=== PATIENT | male | born 1940 | race Caucasian/White ===

== ENCOUNTER → 2016-09-18 | Outpatient (CLI) | payer MEDICARE ==
[~2016-09-18] VITALS: Ht 175.3 cm; Wt 104.4 kg
[~2016-09-18] MED LIST: ALBU6.7H INH; COCO1000 PO; FURO20TA PO; INSULIN HUMAN REGULAR 1,000 UNITS/10 ML VIAL SQ PRN; IPRAAER INH; LACTATED RINGER'S 1000 ML IV SCH; METOPROLOL TARTRATE 25 MG TAB PO PRN; PROPOFOL 200 MG/20 ML AMP IV ONE; SIMV10TA PO; SODIUM CHLORID 0.9% 500 ML IV SCH; SYMB160A INH; TAMS0.4C4 PO
[2016-09-18 08:30] VITALS: BP 175/85; PULSE 66; RESP 18; TEMP 98.1; O2SAT 94
[2016-09-18 11:25] VITALS: TEMP 97.7
--- NOTE | 2016-09-18 11:32 | GIPROC ---
[facility] [address] [facility]. [facility], [id number] COLONOSCOPY PROCEDURE REPORT EXAM DATE: 09/18/2016 PATIENT NAME: Praful Roy MR #: [id number] BIRTHDATE: 1940 ENDOSCOPIST: Vladimir Witt MD ORDER #: [id number] PROPERTY AND EQUIPMENT CLERK: Josefina Webb and Estelita Rascon STATUS: outpatient INDICATIONS: The patient is a 76 yr old male here for a colonoscopy due to rectal bleeding PROCEDURE PERFORMED: Colonoscopy with ablation Colonoscopy with polypectomy MEDICATIONS: None and Per Anesthesia. PREP QUALITY: but the prep was poor in the rectum and distal sigmoid ESTIMATED BLOOD LOSS: None CONSENT: The patient understands the risks and benefits of the procedure and understands that these risks include, but are not limited to: sedation, allergic reaction, infection, perforation and/or bleeding. Alternative means of evaluation and treatment include, among others: physical exam, x-rays, and/or surgical intervention. The patient elects to proceed with this endoscopic procedure. medical equipment was checked for proper function. Hand hygiene and appropriate measures for infection prevention was taken. After the risks, benefits and alternatives of the procedure were thoroughly explained, Informed consent was verified, confirmed and timeout was successfully executed by the treatment team. A digital exam revealed no abnormalities of the rectum The Pentax [id number] endoscope was introduced through the anus and advanced to the cecum, which was identified by both the appendix and ileocecal valve. The instrument was then slowly withdrawn as the colon was fully examined. COLON FINDINGS: Ten small medium sized large sessile polyps were found in the ascending colon, transverse colon, descending colon, and sigmoid colon. Adenomatous. A polypectomy was performed using snare cautery. The resection was complete and the polyp tissue was partially retrieved. Ten medium sized large pedunculated polyps were found in the proximal transverse colon, distal transverse colon, and descending colon. Adenomatous. A polypectomy was performed using snare cautery. The resection was complete and the polyp tissue was partially retrieved. Five diminutive sessile polyps were found in the ascending colon, transverse colon, and descending colon. Adenomatous. Destruction of tissue via ablation was attempted. There was no blood loss from maneuver. Mild diverticulosis was noted throughout the entire examined colon. 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 The colon mucosa was otherwise normal. Retroflexed views revealed no abnormalities The scope was then completely withdrawn from the patient and the procedure terminated. PROCEDURE WITHDRAWAL TIME:54.4minutes ADVERSE EVENTS: There were no complications. IMPRESSIONS: 1. Ten small medium sized large sessile polyps were found in the ascending colon, transverse colon, descending colon, and sigmoid colon; Adenomatous; polypectomy was performed using snare cautery 2. Ten medium sized large pedunculated polyps were found in the proximal transverse colon, distal transverse colon, and descending colon; Adenomatous; polypectomy was performed using snare cautery 3. Five diminutive sessile polyps were found in the ascending colon, transverse colon, and descending colon; Adenomatous; Destruction of tissue via ablation was attempted 4. Mild diverticulosis was noted throughout the entire examined colon 5. 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 The colon mucosa was otherwise normal 7. Retroflexed views revealed no abnormalities 8. Revealed no abnormalities of the rectum RECOMMENDATIONS: 1. Await biopsy results. Biopsy results will not be ready for 7-10 days. If you don't hear from us in two weeks, call our office for results. 2. High fiber diet. Avoid nuts, seeds, and popcorn. Chew your food well. 3. Follow-up: GI Clinic 4 week(s) 4. Yearly hemoccult RECALL: Return 3 months Colonoscopy Vladimir Witt MD eSigned: Vladimir Witt MD 09/18/2016 11:31 AM cc: PATIENT NAME: Praful Roy MR#: [id number]
[2016-09-18 11:36] VITALS: BP 164/77; PULSE 78; RESP 20; O2SAT 95
--- NOTE | 2016-09-18 22:09 | EKG ---
Date Performed: 09/18/2016 Time Performed: 08:54:20 PTAGE: 76 years EKG: Sinus rhythm Since previous tracing, no significant change noted NORMAL ECG PREVIOUS TRACING : 08/20/2015 18.37 DOCTOR: Rita Laura Interpretating Date/Time 09/18/2016 22:07:30
== END ==
LOC: HEND 08:01
PROVIDERS: ATTEND Internal Medicine Gastroenterology
DX: D12.4 Benign neoplasm of descending colon (principal); D12.3 Benign neoplasm of transverse colon; D12.2 Benign neoplasm of ascending colon; D12.5 Benign neoplasm of sigmoid colon; K57.30 Diverticulosis of large intestine without perforation or abscess without bleeding; K62.5 Hemorrhage of anus and rectum; K62.7 Radiation proctitis; Z01.810 Encounter for preprocedural cardiovascular examination
CPT/HCPCS: 00810; 45385; 88305; 93005; J7120

== ENCOUNTER 2017-05-13 12:37 | Observation (INO) | payer MEDICARE ==
[2017-05-13] VITALS (8 sets, daily range): BP systolic 143–188; BP diastolic 67–85; PULSE 72–87; RESP 17–20; TEMP 97.4–98.4; O2SAT 92–99
[~2017-05-13] VITALS: Ht 175.3 cm; Wt 102.2 kg
[~2017-05-13 12:37] MED LIST changes: -INSULIN HUMAN REGULAR 1,000 UNITS/10 ML VIAL SQ PRN; -LACTATED RINGER'S 1000 ML IV SCH; -METOPROLOL TARTRATE 25 MG TAB PO PRN; -PROPOFOL 200 MG/20 ML AMP IV ONE; -SODIUM CHLORID 0.9% 500 ML IV SCH
[2017-05-13] MEDS ORDERED: LISI-519 PO (13:00)
[2017-05-13] MEDS ORDERED: oxygen NAS.CANULA (13:00)
--- NOTE | 2017-05-13 13:04 | PD ---
HPI Chief Complaint: Hypertension Time Seen by Provider: 12:55 Travel History International Travel<30 days: No Contact w/Intl Traveler<30days: No Traveled to known affect area: No History of Present Illness HPI patient is a 77-year-old male with a history of COPD presents emergency department for evaluation of a fatigue sensation that started when he had been walking around [facility] today. The patient states he became winded and then pointed to his chest and stated "stare just felt like it wasn't working". 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 He states she's had a heart workup for including an EKG but is never had a stress test or cardiac catheterization. He thought his blood pressure was up and was recently started on lisinopril by his primary care physician. States symptoms are moderate, context as above, worsened by walking , associated with shortness of breath. Of note the patient also states he has a history of aortic bifemoral grafting and is being monitored for an endoleak. PFSH Past Medical History Arthritis: Yes Asthma: No Autoimmune Disease: No Cancer: Yes (prostate cancer with radiation) Cardiovascular Problems: Yes (prev aortic aneurysm) High Cholesterol: Yes COPD: Yes Diabetes: No Diminished Hearing: Yes Endocrine: No Gastrointestinal Disorders: Yes (sometimes will have impaction of stool in rectum) Genitourinary: Yes (enlarged prostate) Hepatitis: No Hiatal Hernia: No Hypertension: Yes Immune Disorder: No Musculoskeletal: Yes (arthritis fingers) Neurologic: No Psychiatric: No Respiratory: Yes (COPD) Sleep Apnea: No Thyroid Disease: No Past Surgical History Abdominal Aneurysm Repair: Yes (october 2014, AORTIC STENT) Abdominal Surgery: Yes (HERNIA REPAIR-RT GROIN X3, APPENDECTOMY, tiny) AICD: No Appendectomy: Yes Body Medical Devices: stent in aorta Cardiac Surgery: Yes (aortic stent) Cholecystectomy: Yes Ear Surgery: No Endocrine Surgery: No Eye Surgery: No Genitourinary Surgery: No Gynecologic Surgery: No Joint Replacement: No Neurologic Surgery: No Oral Surgery: Yes (for dentures) Pacemaker: No Thoracic Surgery: No Other Surgery: Yes Social History Alcohol Use: No Tobacco Use: No (QUIT 7 YRS AGO, SMOKED 3 PPD FOR 60+ YRS) Substance Use: No Allergies-Medications (Allergen,Severity, Reaction): Coded Allergies: No Known Allergies (Verified Allergy, Unknown, 05/13/17) Reported Meds & Prescriptions Reported Meds & Active Scripts Active Reported [oxygen] 2 Liter RHONA.CANULA HS Lisinopril 5 Mg Tab 10 Mg PO DAILY Symbicort Inh (Budesonide/Formoterol Fumarate) 160-4.5 Mcg/Act Aero 2 Puff INH Q12HR Proventil Hfa 6.7 GM Inh (Albuterol Sulfate) 90 Mcg/Act Aer 2 Puff INH Q6H PRN Combivent Respimat Inh (Ipratropium-Albuterol Inh) 20-100 Alf/Act Aero 1 Puff INH TID Tamsulosin (Tamsulosin HCl) 0.4 Mg Cap 0.4 Mg PO HS Simvastatin 10 Mg Tab 5 Mg PO DAILY Review of Systems Except as stated in HPI: all other systems reviewed are Neg Physical Exam Narrative GENERAL: Well-developed well-nourished in no obvious distress. SKIN: Focused skin assessment warm/dry. HEAD: Atraumatic. Normocephalic. EYES: Pupils equal and round. No scleral icterus. No injection or drainage. ENT: No nasal bleeding or discharge. Mucous membranes pink and moist. NECK: Trachea midline. No JVD. CARDIOVASCULAR: Regular rate and rhythm. No murmur appreciated. RESPIRATORY: Slightly increased work of breathing with some accessory muscle use. No retractions. Clear to auscultation. Breath sounds equal bilaterally. GASTROINTESTINAL: Abdomen soft, non-tender, nondistended. Hepatic and splenic margins not palpable. MUSCULOSKELETAL: No obvious deformities. No clubbing. No cyanosis. No edema. NEUROLOGICAL: Awake and alert. No obvious cranial nerve deficits. Motor grossly within normal limits. Normal speech. PSYCHIATRIC: Appropriate mood and affect; insight and judgment normal. Data Data Last Documented VS Vital Signs Date Time Temp Pulse Resp B/P (MAP) Pulse Ox O2 Delivery O2 Flow Rate FiO2 05/13/17 14:54 99 Nasal Cannula 2.00 05/13/17 13:01 82 18 05/13/17 12:47 97.9 188/85 (119) Orders Orders Electrocardiogram (05/13/17 13:02) Basic Metabolic Panel (Bmp) (05/13/17 13:02) Ckmb (Isoenzyme) Profile (05/13/17 13:02) Complete Blood Count With Diff (05/13/17 13:02) Magnesium (Mg) (05/13/17 13:02) Prothrombin Time / Inr (Pt) (05/13/17 13:02) Act Partial Throm Time (Ptt) (05/13/17 13:02) Troponin I (05/13/17 13:02) Chest, Single Ap (05/13/17 13:02) Ecg Monitoring (05/13/17 13:02) Iv Access Insert/Monitor (05/13/17 13:02) Oximetry (05/13/17 13:02) Oxygen Administration (05/13/17 13:02) Aspirin Chew (Aspirin Chew) (05/13/17 13:15) Sodium Chloride 0.9% Flush (Ns Flush) (05/13/17 13:15) Blood Gas Venous (Vbg) (05/13/17 14:28) Methylprednisolone So Succ Inj (Solumedr (05/13/17 14:30) Albuterol-Ipratropium Neb (Duoneb Neb) (05/13/17 15:00) Admit Order (Ed Use Only) (05/13/17 ) Labs Laboratory Tests Test 05/13/17 13:15 05/13/17 14:43 White Blood Count 5.7 TH/MM3 Red Blood Count 4.64 MIL/MM3 Hemoglobin 12.7 GM/DL Hematocrit 38.7 % Mean Corpuscular Volume 83.3 FL Mean Corpuscular Hemoglobin 27.3 PG Mean Corpuscular Hemoglobin Concent 32.8 % Red Cell Distribution Width 14.9 % Platelet Count 190 TH/MM3 Mean Platelet Volume 8.0 FL Neutrophils (%) (Auto) 71.8 % Lymphocytes (%) (Auto) 16.5 % Monocytes (%) (Auto) 7.0 % Eosinophils (%) (Auto) 4.2 % Basophils (%) (Auto) 0.5 % Neutrophils # (Auto) 4.2 TH/MM3 Lymphocytes # (Auto) 0.9 TH/MM3 Monocytes # (Auto) 0.4 TH/MM3 Eosinophils # (Auto) 0.2 TH/MM3 Basophils # (Auto) 0.0 TH/MM3 CBC Comment DIFF FINAL Differential Comment Prothrombin Time 10.5 SEC Prothromb Time International Ratio 1.0 RATIO Activated Partial Thromboplast Time 28.1 SEC Blood Urea Nitrogen 20 MG/DL Creatinine 1.20 MG/DL Random Glucose 102 MG/DL Calcium Level 8.7 MG/DL Magnesium Level 2.2 MG/DL Sodium Level 140 MEQ/L Potassium Level 4.2 MEQ/L Chloride Level 105 MEQ/L Carbon Dioxide Level 31.8 MEQ/L Anion Gap 3 MEQ/L Estimat Glomerular Filtration Rate 58 ML/MIN Total Creatine Kinase 94 U/L Troponin I LESS THAN 0.02 NG/ML Blood Gas Puncture Site VENOUS Blood Gas Patient Temperature 98.6 Venous Blood pH 7.32 Venous Blood Partial Pressure CO2 64 mmHg Venous Blood Partial Pressure O2 20 mmHg Venous Blood HCO3 32 mmol/L Venous Blood Oxygen Saturation 22 % Venous Blood Oxygen Content 3.8 Vol % Venous Blood Base Excess 5.9 mmol/L Oxygen Delivery Device NASAL CANNULA Blood Gas Liter Flow 2 L/M MDM Medical Decision Making Medical Screen Exam Complete: Yes Emergency Medical Condition: Yes Differential Diagnosis ACS, COPD exacerbation, IL, pneumonia. Narrative Course Patient 77-year-old male with exertional chest symptoms today. Denies actual pain but states that "his chest just doesn't feel right". This occurred while he was walking around [facility] today. Patient does have saturations decreasing to 88% on room air on monitoring. He is on oxygen at home during the night only. VBG does show some acute CO2 retention with pH of 7.31 and CO2 of 60. Initial EKG and troponin are negative. His lungs are clear suggesting a cause of COPD but his oxygen saturation is a little low. I wonder if his symptoms are not anginal equivalents. We'll discuss with for the health care physician on-call for observation status. Diagnosis Primary Impression: Chest discomfort Additional Impression: Shortness of breath Admitting Information Admitting Physician Requests: Observation Condition: Stable Leeroy Gan MD May 13, 2017 13:04
[2017-05-13] MEDS ORDERED: SODIUM CHLORIDE 0.9% FLUSH 10 ML FLUSH IVF PRN (13:15)
[2017-05-13] MEDS ORDERED: ASPIRIN 81 MG CHEW TAB PO ONE (13:15)
[2017-05-13 13:34] LABS: CHLORIDE 105 MEQ/L (98-107); POTASSIUM 4.2 MEQ/L (3.5-5.1); SODIUM (NA) 140 MEQ/L (136-145)
[2017-05-13 13:35] LABS: AUTOMATED NEUTROPHIL # 4.2 TH/MM3 (1.8-7.7); BASOPHIL % 0.5 % (0.0-2.0); EOSINOPHIL # 0.2 TH/MM3 (0-0.4); EOSINOPHIL % 4.2 % (0.0-4.0); HEMATOCRIT 38.7 % (39.0-51.0); HEMO FLAGS DIFF FINAL; LYMPH % 16.5 % (9.0-44.0); LYMPHOCYTE # 0.9 TH/MM3 (1.0-4.8); MEAN CELL VOLUME 83.3 FL (80.0-100.0); MEAN CORPUSCULAR HEMOGLOBIN 27.3 PG (27.0-34.0); MEAN CORPUSCULAR HGB CONC 32.8 % (32.0-36.0); NEUT % 71.8 % (16.0-70.0); PLATELET COUNT 190 TH/MM3 (150-450); RED BLOOD COUNT 4.64 MIL/MM3 (4.50-5.90); RED CELL DISTRIBUTION WIDTH 14.9 % (11.6-17.2); WHITE BLOOD COUNT 5.7 TH/MM3 (4.0-11.0)
[2017-05-13 13:37] LABS: ANION GAP 3 MEQ/L (5-15); BICARBONATE 31.8 MEQ/L (21.0-32.0); BLOOD UREA NITROGEN 20 MG/DL (7-18); MAGNESIUM 2.2 MG/DL (1.5-2.5)
[2017-05-13 13:38] LABS: APTT (PATIENT) 28.1 SEC (24.3-30.1); PROTHROMBIN TIME - PATIENT 10.5 SEC (9.8-11.6)
[2017-05-13 13:40] LABS: GLOMERULAR FILTRATION RATE 58 ML/MIN (>89)
--- NOTE | 2017-05-13 13:50 | RADRPT ---
EXAM DATE/TIME: 05/13/2017 13:07 [facility] COMPARISON: CHEST SINGLE AP, August 20, 2015, 19:09. INDICATIONS : Shortness of breath, weakness, while shopping. MEDICAL HISTORY : Hypercholesterolemia. Chronic obstructive pulmonary disease. Carcinoma, prostatic. Aortic aneurys m. Hypertension.Dyspnea. Constipation. Arthritis. Radiation. SURGICAL HISTORY : Abdominal aortic aneurysm repair. Colostomy. Appendectomy. Hernia repair. ENCOUNTER: Initial ACUITY: 1 day PAIN SCORE: 5/10 LOCATION: chest FINDINGS: A single view of the chest demonstrates the lungs to be symmetrically aerated without evidence of mas s, infiltrate or effusion. The cardiomediastinal contours are unremarkable. Osseous structures are intact. CONCLUSION: No acute disease. King Mathew Jr., MD on May 13, 2017 at 13:48 Board Certified Radiologist. This report was verified electronically.
[2017-05-13 13:56] LABS: CREATINE KINASE 94 U/L (39-308)
[2017-05-13] MEDS ORDERED: methylPREDNISolone SOD SUCC 125 MG/2 ML VIAL IV PUSH ONE (14:30)
[2017-05-13 14:47] LABS: BLOOD GAS VENOUS BASE EXCESS 5.9 mmol/L (-2-2); BLOOD GAS VENOUS HCO3 32 mmol/L (22-26); BLOOD GAS VENOUS O2 CONTENT 3.8 Vol % (9.0-17.0); BLOOD GAS VENOUS O2 HGB SAT 22 % (70-76); BLOOD GAS VENOUS PCO2 64 mmHg (44-48); BLOOD GAS VENOUS PO2 20 mmHg (35-40); BLOOD GAS VENOUS pH 7.32 (7.360-7.400); TEMP CORR TO 98.6
[2017-05-13 14:48] LABS: CRITICAL VALUE YES; DRAW SITE VENOUS; LITER FLOW 2 L/M; OXYGEN DEVICE NASAL CANNULA; STAT YES
[2017-05-13] MEDS ORDERED: RESP: ALBUTEROL 2.5 MG/IPRATROPIUM 0.5 MG NEB (SCH) NEB ONE (15:00)
[2017-05-13] MEDS ORDERED: SODIUM CHLORIDE 0.9% FLUSH 10 ML FLUSH IV FLUSH PRN (15:45)
--- NOTE | 2017-05-13 17:06 | MH ---
cc: EVELIO LAWSON M.D. DATE OF ADMISSION 05/13/2017 ADMISSION DIAGNOSES 1. Intermittent chest discomfort. 2. COPD with chronic respiratory failure on oxygen at night. 3. Hypertension. 4. Hyperlipidemia. 5. Mild carotid artery atherosclerosis. 6. History of prostate cancer with prior image-guided radiation therapy. 7. Stage III chronic kidney disease. 8. Abdominal aortic aneurysm with prior endovascular repair with a persistent type 2 endoleak that is just monitored by his vascular surgeon Dr. Simons. 9. Atherosclerosis of the aorta. 10. History of colon polyps. 11. Diverticulosis. 12. Fatty liver. 13. Obesity. PERTINENT HISTORY This is a 77-year-old white male who mentions that over the last 1-2 months he is finding that he is getting weaker. He gets winded really easily and then he describes very unclearly this feeling that he gets in his chest and upper abdomen where he says it just feels uncomfortable or he does not really describe it as a pain, maybe a pressure. He gets winded with it. It happens worse when he is walking. He has not seen a architecture intern or had any cardiac disease. He does see a data storage specialist for his severe COPD and uses oxygen at night. He can use oxygen during the day as needed but he does not use it for some reason. He denies any pleuritic chest pain. No nausea, vomiting or cough. PAST MEDICAL HISTORY 1. He has hypertension. 2. Hyperlipidemia. 3. COPD as mentioned. 4. Stage III chronic kidney disease. His last GFR in the office was 56. 5. He has had prostate cancer with image guided radiation therapy. His last PSA in March 21 was less than 0.01. 6. He has carotid artery disease with mild bilateral nonobstructive plaque on a carotid ultrasound 10/10/16. 7. He has had multiple colon polyps removed on two separate colonoscopies this year one on 09/18/2016 and another on 01/24/2017 and all the polyps that were looked at pathologically were adenomatous polyp, one was a tubovillous adenoma. 8. He has had fatty liver disease. 9. 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 10. He had an abdominal aortic aneurysm repaired endovascularly and has had a persistent type 2 endovascular leak monitoring, that has just been monitored by Dr. Simons. 11. He has had no thyroid disease. No diabetes. No prior heart attack, congestive heart failure. No stroke. No cancer other than the prostate cancer. PAST SURGICAL HISTORY 1. He has had laparoscopic cholecystectomy. 2. Appendectomy. 3. Endovascular repair of his abdominal aortic aneurysm. 4. Right inguinal hernia repair times three. 5. Pilonidal cyst resection. 6. Colonoscopy 09/18/2016 with at least around 25 polyps found and diverticulosis. 7. Colonoscopy 01/24/2017 had around 7 polyps and diverticulosis. ALLERGIES QUESTIONABLE TO [facility]. MEDICATIONS He is on: 1. Lisinopril 10 milligrams daily. 2. Simvastatin, he takes 10 milligram tablet one-half day. 3. Symbicort 160/4.5 per actuation two puffs twice a day. 4. Tamsulosin 0.4 milligram, he just uses one at night. 5. Ventolin inhalers as needed. 6. He has Lasix 20 milligrams a day only if needed for edema and he has not used this in a month. 7. He uses a Combivent Respimat inhaler one to two puffs four times daily as needed. FAMILY HISTORY His mother at 86 of gangrene of the leg. Father at 51 of a heart attack. SOCIAL HISTORY He is twice. He smoked 2-1/2 packs a day for around 53 years prior to quitting in 2004. He does not use alcohol. He is a retired warehouse assistant. REVIEW OF SYSTEMS GENERAL: No fever or chills, sweats. HEENT: No runny nose, sore throat. No visual complaints. CARDIOVASCULAR: As mentioned. PULMONARY: No cough, hemoptysis, wheezing. He does have COPD. GASTROINTESTINAL: No nausea, vomiting. no melena or rectal bleeding. He had some constipation problems. GENITOURINARY: No increased urinary difficulty. He sees Dr. Carrasquillo for prostate cancer followup. EXTREMITIES: He just has minimal swelling. He uses Lasix if he has swelling. No calf tenderness. NEUROLOGIC: Without focal weakness, sensory loss or confusion. PSYCHIATRIC: Without any depression or anxiety. PHYSICAL EXAMINATION GENERAL: Obese male in no acute distress. VITAL SIGNS: O2 sat on 2 liters is around 97%. He reportedly, according the ER physician, had a sat of 88% of room air when he came in. His BP is 154/67 now, respirations 20, pulse 72. He is afebrile . HEENT: TMs clear. Pupils equal. Sclerae nonicteric. Nose without lesion. Mouth without inflammation or lesion. NECK: Without bruit. No JVD. HEART: Regular rate and rhythm. No murmur. LUNGS: No wheezes or rhonchi. ABDOMEN: Soft, nontender, obese, no masses. EXTREMITIES: Just trace ankle edema. Pulses are palpated. SKIN: No rash. NEUROLOGIC: Oriented x3. Cranial nerves intact. Motor sensory intact. IMAGING A Chest x-ray showed no acute process. LABORATORY DATA BMP, GFR was 58. Sodium and potassium normal. Troponin less than 0.02. CBC, hemoglobin 12.7, normal red cell indices. Platelets normal. ABG on 2 liters showed a pCO2 of 64, pH is 7.32, pAO2 ___, this was actually not an arterial blood gas, it was a venous blood gas but the pCO2 was 64. EKG showed no acute process. Chest x-ray showed no acute disease. ASSESSMENT As noted. PLAN We will admit him and do serial troponins and EKGs. Obtain a cardiology consult to rule out any anginal equivalent. He does seem to get some sort of worse symptoms when he is exerting himself and that is when his primary symptoms occur. He is asymptomatic currently. We will put him on a baby aspirin for now. He will be maintained on a statin drug and his inhalers and his KAYDEN inhibitor. He will be maintained on oxygen currently. We will attempt to do a respiratory walk test on him on room air just to see if his sats drop down real low when he is ambulating. More than likely he needs to be using oxygen when he is out ambulating, and it may be that some of his symptoms are reflective more of his COPD deteriorating. MD CYNTHIA Lemus/DREW /4:10 PM /4:29 PM
[2017-05-13] MEDS ORDERED: COMBIVENT RESPIMAT INH SCH (18:00)
[2017-05-13 19:05] LABS: CREATINE KINASE 75 U/L (39-308)
[2017-05-13] MEDS: SODIUM CHLORIDE 0.9% FLUSH 10 ML FLUSH IV FLUSH SCH (21:59)
[2017-05-13] MEDS: BUDESONIDE-FORMOTEROL 160/4.5 MCG INHALER INH SCH (21:59)
[2017-05-13] MEDS: PANTOPRAZOLE SOD 40 MG DELAYED RELEASE TAB PO SCH (21:59)
[2017-05-13] MEDS: TAMSULOSIN HCL 0.4 MG CAP PO SCH (22:00)
[2017-05-14] VITALS (10 sets, daily range): BP systolic 136–171; BP diastolic 64–89; PULSE 70–102; RESP 16–20; TEMP 96.4–98.1; O2SAT 93–98
[2017-05-14 04:25] LABS: CREATINE KINASE 64 U/L (39-308)
--- NOTE | 2017-05-14 07:58 | MB ---
cc: CHICHI CANTU MD DATE OF CONSULTATION: 05/14/2017 HISTORY OF PRESENT ILLNESS This is a 77-year-old gentleman who is admitted to the hospital for not feeling well. He is somewhat of a poor historian. He noted gradually over the last several months after eating he has a vague feeling of uneasiness and feeling unwell. This was exacerbated yesterday, especially after walking [employer] and he came to the emergency department. No real chest pain has been present, although he does describe a vague feeling of discomfort. He did note that he was significantly short of breath. No cough or sputum production was present. No prior history of heart disease has been present. He has a history of COPD for which he wears oxygen at night. He has been recommended to have home O2 but finds that carrying supplemental oxygen inconvenient and has not been able to afford a concentrator. On admission to the hospital it was noted that his pH was low at 7.32 with hypercarbia with PCO2 of 64 and PO2 of 20. Chest x-ray was unremarkable and his electrocardiogram is normal. Serial troponins have also been essentially normal as well. I have been asked to see him to rule out any occult heart disease which may be an anginal equivalent. PAST MEDICAL HISTORY He is a former smoker having stopped in 2004. He has had a history of hypertension and has recently been started on lisinopril. He is uncertain of the efficacy of the lisinopril. We do note that his blood pressure has been elevated since he has been here in the hospital. No history of diabetes has been present. He denies hyperlipidemia. Past medical history has otherwise been unremarkable. ALLERGIES None. MEDICATIONS Medications at home have included: 1. Symbicort. 2. Aspirin. 3. Atorvastatin. 4. Protonix. 5. Flomax. 6. Albuterol. PHYSICAL EXAMINATION GENERAL: He is awake and alert. He is in no acute distress. VITAL SIGNS: Blood pressure 150/65, pulse 74 and regular. He is afebrile. NECK: There is no neck vein distention. No carotid bruits are present. LUNGS: Decreased breath sounds throughout all lung bob. No wheezes or rhonchi is present. CARDIOVASCULAR: Regular rate and rhythm. No significant murmur is present. There is no gallop. EXTREMITIES: No edema. ASSESSMENT AND PLAN The patient has what appears to be an exacerbation of his COPD given his blood gases. I have ordered a D-dimer as well to rule out the possibility of pulmonary emboli, although I think that is unlikely. A BNP has also been ordered to help try to parse differences between COPD and CHF. He has had a normal echo in 2012 and certainly on his chest x-ray there is no evidence to suggest fluid retention. In view of his history of hypertension and smoking I have ordered a Lexiscan to rule out occult coronary disease. MD JOJO Burden/SERGIO /7:39 AM /7:51 AM
[2017-05-14] MEDS ORDERED: LISINOPRIL 10 MG TAB PO SCH (09:00)
[2017-05-14] MEDS: amLODIPine BESYLATE 5 MG TAB PO SCH (09:05)
[2017-05-14] MEDS: ASPIRIN EC 81 MG TABEC PO SCH (09:05)
[2017-05-14] MEDS: BUDESONIDE-FORMOTEROL 160/4.5 MCG INHALER INH SCH ×2 (09:05→21:02)
[2017-05-14] MEDS: ATORVASTATIN 10 MG TAB PO SCH (09:05)
[2017-05-14] MEDS: PANTOPRAZOLE SOD 40 MG DELAYED RELEASE TAB PO SCH (09:06)
[2017-05-14] MEDS: SODIUM CHLORIDE 0.9% FLUSH 10 ML FLUSH IV FLUSH SCH ×2 (09:07→21:03)
[2017-05-14] MEDS ORDERED: IOHEXOL 350 MG/ML 10 ML VIAL (for RAD DIAG) IVCONTRAST ONE (11:50)
--- NOTE | 2017-05-14 11:59 | RADRPT ---
EXAM DATE/TIME: 05/14/2017 11:41 [facility] COMPARISON: No previous studies available for comparison. INDICATIONS : Chest pain and short of breath x 3 weeks, worse since yesterday. IV CONTRAST: 75 cc Omnipaque 350 (iohexol) IV RADIATION DOSE: 17.01 CTDIvol (mGy) MEDICAL HISTORY : Carcinoma, prostate. Chronic obstructive pulmonary disease. Aneurysm, abdominal.Hypertension. SURGICAL HISTORY : Inguinal hernia repair. Abdominal aortic aneurysm repair.Appendectomy.Cholecystectomy. ENCOUNTER: Initial ACUITY: 3 weeks PAIN SCALE: 5/10 LOCATION: chest TECHNIQUE: Volumetric scanning of the chest was performed using a pulmonary embolism protocol MIP images were re constructed. Using automated exposure control and adjustment of the mA and/or kV according to patien t size, radiation dose was kept as low as reasonably achievable to obtain optimal diagnostic quality images. DICOM format image data is available electronically for review and comparison. Follow-up recommendations for detected pulmonary nodules are based at a minimum on nodule size and pa tient risk factors according to Fleischner Society Guidelines. FINDINGS: PULMONARY ARTERIES: No filling defects are seen in the pulmonary arteries through the segmental level. LUNGS: There is no consolidation or pneumothorax . No concerning pulmonary nodule is visualized. PLEURAE: There is no pleural thickening or pleural effusion. MEDIASTINUM: There is good visualization of the great vessels of the middle mediastinum. No evidence of mediastin al or hilar adenopathy/mass. Marked atherosclerotic disease MUSCULOSKELETAL: Within normal limits for patient age. MISCELLANEOUS: The visualized upper abdominal organs demonstrate no acute abnormality. CONCLUSION: Normal examination. Matthew Marmolejo MD on May 14, 2017 at 11:57 Board Certified Radiologist. This report was verified electronically.
--- NOTE | 2017-05-14 15:36 | HHI.PR ---
Subjective Remarks He stated he felt better today. I had given him some Pantoprazole for some vague epigastric GI symptoms and that seemed to help. He denies any increased breathing problems. Objective Vitals Vital Signs Date Time Temp Pulse Resp B/P (MAP) Pulse Ox O2 Delivery O2 Flow Rate FiO2 05/14/17 12:00 96.5 102 18 171/77 (108) 94 05/14/17 09:21 94 05/14/17 08:00 96.5 82 16 168/89 (115) 96 05/14/17 07:56 95 Nasal Cannula 2.00 05/14/17 04:00 96.4 74 20 153/65 (94) 94 05/14/17 00:00 98.1 77 20 150/71 (97) 93 05/13/17 21:10 84 05/13/17 20:00 97.4 84 20 186/84 (118) 95 05/13/17 19:30 95 Nasal Cannula 2.00 05/13/17 16:00 98.4 74 20 143/67 (92) 92 05/13/17 15:55 Result Diagram: 05/13/17 1315 05/13/17 1315 Other Results Laboratory Tests Test 05/13/17 13:15 05/13/17 14:43 05/13/17 18:30 05/14/17 03:24 White Blood Count 5.7 TH/MM3 Red Blood Count 4.64 MIL/MM3 Hemoglobin 12.7 GM/DL Hematocrit 38.7 % Mean Corpuscular Volume 83.3 FL Mean Corpuscular Hemoglobin 27.3 PG Mean Corpuscular Hemoglobin Concent 32.8 % Red Cell Distribution Width 14.9 % Platelet Count 190 TH/MM3 Mean Platelet Volume 8.0 FL Neutrophils (%) (Auto) 71.8 % Lymphocytes (%) (Auto) 16.5 % Monocytes (%) (Auto) 7.0 % Eosinophils (%) (Auto) 4.2 % Basophils (%) (Auto) 0.5 % Neutrophils # (Auto) 4.2 TH/MM3 Lymphocytes # (Auto) 0.9 TH/MM3 Monocytes # (Auto) 0.4 TH/MM3 Eosinophils # (Auto) 0.2 TH/MM3 Basophils # (Auto) 0.0 TH/MM3 CBC Comment DIFF FINAL Differential Comment Prothrombin Time 10.5 SEC Prothromb Time International Ratio 1.0 RATIO Activated Partial Thromboplast Time 28.1 SEC Blood Urea Nitrogen 20 MG/DL Creatinine 1.20 MG/DL Random Glucose 102 MG/DL Calcium Level 8.7 MG/DL Magnesium Level 2.2 MG/DL Sodium Level 140 MEQ/L Potassium Level 4.2 MEQ/L Chloride Level 105 MEQ/L Carbon Dioxide Level 31.8 MEQ/L Anion Gap 3 MEQ/L Estimat Glomerular Filtration Rate 58 ML/MIN Total Creatine Kinase 94 U/L 75 U/L 64 U/L Troponin I LESS THAN 0.02 NG/ML LESS THAN 0.02 NG/ML LESS THAN 0.02 NG/ML Blood Gas Puncture Site VENOUS Blood Gas Patient Temperature 98.6 Venous Blood pH 7.32 Venous Blood Partial Pressure CO2 64 mmHg Venous Blood Partial Pressure O2 20 mmHg Venous Blood HCO3 32 mmol/L Venous Blood Oxygen Saturation 22 % Venous Blood Oxygen Content 3.8 Vol % Venous Blood Base Excess 5.9 mmol/L Oxygen Delivery Device NASAL CANNULA Blood Gas Liter Flow 2 L/M Test 05/14/17 09:00 D-Dimer Quantitative (PE/DVT) 4.37 MG/L FEU B-Type Natriuretic Peptide 36 PG/ML Imaging Last Impressions CT Angiography 05/14/17 0000 Signed Impressions: Service Date/Time: Sunday, May 14, 2017 11:41 - CONCLUSION: Normal examination. Matthew Marmolejo MD Chest X-Ray 05/13/17 1302 Signed Impressions: Service Date/Time: Saturday, May 13, 2017 13:07 - CONCLUSION: No acute disease. King Mathew Jr., MD Objective Remarks General: Pleasant male in no distress HEENT: Pupils equal, no scleral icterus, mouth negative Neck: No JVD Heart: RRR Lungs: Clear Abdomen: soft, obese, no significant tenderness Extremities: No edema Neuro: Alert, no focal findings A/P Assessment and Plan Assessment: -- Intermittent chest discomfort -- COPD -- Chronic respiratory failure who uses oxygen at night but has been hesitant to use it in the day but likely needs it. 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 If this comes back negative he should be able to be discharge. He will be instructed to use his oxygen during the day while ambulating. He will followup with his occupational health and safety officer (Dr Hussein) and PCP when discharged. I will give him some Pantoprazole 40mg to use daily for GI symptoms. If they cannot do his stress today then it will be done tomorrow. Nathaniel Castro MD May 14, 2017 15:36
--- NOTE | 2017-05-14 19:13 | EKG ---
Date Performed: 05/13/2017 Time Performed: 13:10:06 PTAGE: 77 years EKG: Sinus rhythm Since previous tracing, no significant change noted NORMAL ECG PREVIOUS TRACING : 09/18/2016 08.54 DOCTOR: Ronnell Barr Interpretating Date/Time 05/14/2017 19:11:59
--- NOTE | 2017-05-14 19:14 | EKG ---
Date Performed: 05/13/2017 Time Performed: 18:03:01 PTAGE: 77 years EKG: Sinus rhythm Since previous tracing, no significant change noted NORMAL ECG PREVIOUS TRACING : 05/13/2017 13.10 DOCTOR: Ronnell Barr Interpretating Date/Time 05/14/2017 19:12:21
--- NOTE | 2017-05-14 19:14 | EKG ---
Date Performed: 05/14/2017 Time Performed: 02:57:12 PTAGE: 77 years EKG: Sinus rhythm Since previous tracing, no significant change noted NORMAL ECG PREVIOUS TRACING : 05/13/2017 18.03 DOCTOR: Ronnell Barr Interpretating Date/Time 05/14/2017 19:12:37
[2017-05-14] MEDS: ALBUTEROL SULFATE 90 MCG/ACT HFA 8 GM INHALER INH PRN (21:01)
[2017-05-14] MEDS: LISINOPRIL 10 MG TAB PO SCH (21:02)
[2017-05-14] MEDS: TAMSULOSIN HCL 0.4 MG CAP PO SCH (21:02)
[2017-05-15] MEDS: ALBUTEROL SULFATE 90 MCG/ACT HFA 8 GM INHALER INH PRN (00:42)
[2017-05-15 04:00] VITALS: BP 134/60; PULSE 76; RESP 20; TEMP 97.8; O2SAT 96
[2017-05-15 08:00] VITALS: BP 140/60; PULSE 77; RESP 14; TEMP 97.3; O2SAT 99
--- NOTE | 2017-05-15 08:00 | PD.CARD.PN ---
Subjective Subjective Remarks CTA normal. No evidence of pulmonary emboli. Await lexiscan Objective Medications Current Medications Medications (Trade) Dose Ordered Sig/Clifford Route Start Time Stop Time Status Last Admin (NS Flush) 2 ml BID IV FLUSH 05/13/17 21:00 05/14/17 21:03 (NS Flush) 2 ml UNSCH PRN IV FLUSH 05/13/17 15:45 (Proair Hfa Inh) 2 puff Q6H PRN INH 05/13/17 16:00 05/15/17 00:42 (Symbicort 160-4.5 Inh) 2 puff Q12HR INH 05/13/17 21:00 05/14/17 21:02 (Flomax) 0.4 mg HS PO 05/13/17 21:00 05/14/17 21:02 Patient Own Medication PT OWN MED:COMBIVENT RESPIMA... TID INH 05/13/17 18:00 Future Hold (Lipitor) 10 mg DAILY PO 05/14/17 09:00 05/14/17 09:05 (Ecotrin Ec) 81 mg DAILY PO 05/14/17 09:00 05/14/17 09:05 (Protonix) 40 mg DAILY PO 05/13/17 21:30 05/14/17 09:06 (Norvasc) 5 mg DAILY PO 05/14/17 09:00 05/14/17 09:05 (Prinivil) 10 mg BID PO 05/14/17 21:00 05/14/17 21:02 Vital Signs / I&O Vital Signs Date Time Temp Pulse Resp B/P (MAP) Pulse Ox O2 Delivery O2 Flow Rate FiO2 05/15/17 04:00 97.8 76 20 134/60 (84) 96 05/14/17 20:00 76 05/14/17 20:00 96.8 70 20 146/68 (94) 98 05/14/17 19:30 97 Nasal Cannula 2.00 05/14/17 17:41 75 05/14/17 16:39 97.2 74 20 136/64 (88) 96 05/14/17 12:00 96.5 102 18 171/77 (108) 94 05/14/17 09:21 94 I/O 05/14/17 05/14/17 05/14/17 05/15/17 05/15/17 11/22/17 07:00 15:00 23:00 07:00 15:00 23:00 Intake Total 120 ml 840 ml 0 ml Balance 120 ml 840 ml 0 ml Intake Oral 120 ml 840 ml 0 ml # Voids 3 8 2 # Bowel Movements 0 1 Laboratory Laboratory Tests Test 05/14/17 09:00 D-Dimer Quantitative (PE/DVT) 4.37 MG/L FEU B-Type Natriuretic Peptide 36 PG/ML Adalberto Sampson MD May 15, 2017 08:00
[2017-05-15 08:52] VITALS: O2SAT 98
[2017-05-15] MEDS: SODIUM CHLORIDE 0.9% FLUSH 10 ML FLUSH IV FLUSH SCH (09:00)
[2017-05-15] MEDS ORDERED: REGADENOSON INJ 0.4 MG/5 ML SYR IV ONE (09:14)
[2017-05-15] MEDS: PANTOPRAZOLE SOD 40 MG DELAYED RELEASE TAB PO SCH (10:02)
[2017-05-15] MEDS: amLODIPine BESYLATE 5 MG TAB PO SCH (10:03)
[2017-05-15] MEDS: LISINOPRIL 10 MG TAB PO SCH (10:03)
[2017-05-15] MEDS: ATORVASTATIN 10 MG TAB PO SCH (10:03)
[2017-05-15] MEDS: ASPIRIN EC 81 MG TABEC PO SCH (10:03)
[2017-05-15] MEDS: BUDESONIDE-FORMOTEROL 160/4.5 MCG INHALER INH SCH (10:05)
--- NOTE | 2017-05-15 10:18 | RADRPT ---
EXAM DATE/TIME: 05/15/2017 09:02 [facility] COMPARISON: No previous studies available for comparison. INDICATIONS : Mid chest pain for two weeks. Angina. DOSE: 29.8 mCi Tc99m Myoview at stress. 8.7 mCi Tc99m Myoview at rest. 0.4 mg Lexiscan STRESS SYMPTOMS: Shortness of breath. EJECTION FRACTION: 55% MEDICAL HISTORY : Chronic obstructive pulmonary disease. Hypertension. Carcinoma, prostate. SURGICAL HISTORY : Abdominal aortic aneurysm repair. Cholecystectomy. Appendectomy. ENCOUNTER: Initial ACUITY: 2 weeks PAIN SCALE: 5/10 LOCATION: Midsternal chest TECHNIQUE: The patient underwent pharmacologic stress with infusion of prescribed dose. Continuous ECG tracing was monitored during stress. Gated SPECT imaging was performed after stress and conventional SPECT i maging was performed at rest. The examination was performed on a SPECT/CT scanner, both attenuation and non-corrected datasets were reviewed. FINDINGS: DISTRIBUTION: The maximum perfused segment at stress is in the septal wall. PERFUSION STUDY: The pattern of perfusion at stress is within normal limits. GATED STUDY: There is intact wall motion and thickening without hypokinetic or dyskinetic segments. CONCLUSION: 1. No significant stress-induced perfusion abnormality. 2. Intact wall motion with ejection fraction of 55%. RISK CATEGORY: Low (<1% Annual Mortality Rate) Alex Ely MD on May 15, 2017 at 10:15 Board Certified Radiologist. This report was verified electronically.
[2017-05-15] MEDS ORDERED: LISI10TA3 PO (11:15)
[2017-05-15] MEDS ORDERED: AMLO5 PO (11:15)
[2017-05-15] MEDS ORDERED: PANT40TA3 PO (11:15)
[2017-05-15] MEDS ORDERED: ECASA81 PO (11:15)
--- NOTE | 2017-05-15 11:49 | HHI.PR ---
Subjective Remarks His breathing is stable on oxygen. He has no chest pain. He was not able to do his nuclear stress test till this morning and it showed no ischemia. He is wanting to go home. Objective Vitals Vital Signs Date Time Temp Pulse Resp B/P (MAP) Pulse Ox O2 Delivery O2 Flow Rate FiO2 05/15/17 08:52 98 Nasal Cannula 2.00 05/15/17 08:00 97.3 77 14 140/60 (86) 99 05/15/17 04:00 97.8 76 20 134/60 (84) 96 05/14/17 20:00 76 05/14/17 20:00 96.8 70 20 146/68 (94) 98 05/14/17 19:30 97 Nasal Cannula 2.00 05/14/17 17:41 75 05/14/17 16:39 97.2 74 20 136/64 (88) 96 05/14/17 12:00 96.5 102 18 171/77 (108) 94 Result Diagram: 05/13/17 1315 05/13/17 1315 Other Results Laboratory Tests Test 05/13/17 13:15 05/13/17 14:43 05/13/17 18:30 05/14/17 03:24 White Blood Count 5.7 TH/MM3 Red Blood Count 4.64 MIL/MM3 Hemoglobin 12.7 GM/DL Hematocrit 38.7 % Mean Corpuscular Volume 83.3 FL Mean Corpuscular Hemoglobin 27.3 PG Mean Corpuscular Hemoglobin Concent 32.8 % Red Cell Distribution Width 14.9 % Platelet Count 190 TH/MM3 Mean Platelet Volume 8.0 FL Neutrophils (%) (Auto) 71.8 % Lymphocytes (%) (Auto) 16.5 % Monocytes (%) (Auto) 7.0 % Eosinophils (%) (Auto) 4.2 % Basophils (%) (Auto) 0.5 % Neutrophils # (Auto) 4.2 TH/MM3 Lymphocytes # (Auto) 0.9 TH/MM3 Monocytes # (Auto) 0.4 TH/MM3 Eosinophils # (Auto) 0.2 TH/MM3 Basophils # (Auto) 0.0 TH/MM3 CBC Comment DIFF FINAL Differential Comment Prothrombin Time 10.5 SEC Prothromb Time International Ratio 1.0 RATIO Activated Partial Thromboplast Time 28.1 SEC Blood Urea Nitrogen 20 MG/DL Creatinine 1.20 MG/DL Random Glucose 102 MG/DL Calcium Level 8.7 MG/DL Magnesium Level 2.2 MG/DL Sodium Level 140 MEQ/L Potassium Level 4.2 MEQ/L Chloride Level 105 MEQ/L Carbon Dioxide Level 31.8 MEQ/L Anion Gap 3 MEQ/L Estimat Glomerular Filtration Rate 58 ML/MIN Total Creatine Kinase 94 U/L 75 U/L 64 U/L Troponin I LESS THAN 0.02 NG/ML LESS THAN 0.02 NG/ML LESS THAN 0.02 NG/ML Blood Gas Puncture Site VENOUS Blood Gas Patient Temperature 98.6 Venous Blood pH 7.32 Venous Blood Partial Pressure CO2 64 mmHg Venous Blood Partial Pressure O2 20 mmHg Venous Blood HCO3 32 mmol/L Venous Blood Oxygen Saturation 22 % Venous Blood Oxygen Content 3.8 Vol % Venous Blood Base Excess 5.9 mmol/L Oxygen Delivery Device NASAL CANNULA Blood Gas Liter Flow 2 L/M Test 05/14/17 09:00 D-Dimer Quantitative (PE/DVT) 4.37 MG/L FEU B-Type Natriuretic Peptide 36 PG/ML Imaging Last Impressions Myocardial Perfusion Scan Nuc Med 05/15/17 0000 Signed Impressions: Service Date/Time: Monday, May 15, 2017 09:02 - CONCLUSION: 1. No significant stress-induced perfusion abnormality. 2. Intact wall motion with ejection fraction of 55%%. RISK CATEGORY: Low (<1%% Annual Mortality Rate ) Alex Ely MD CT Angiography 05/14/17 0000 Signed Impressions: Service Date/Time: Sunday, May 14, 2017 11:41 - CONCLUSION: Normal examination. Matthew Marmolejo MD Chest X-Ray 05/13/17 1302 Signed Impressions: Service Date/Time: Saturday, May 13, 2017 13:07 - CONCLUSION: No acute disease. King Mathew Jr., MD Last Impressions CT Angiography 05/14/17 0000 Signed Impressions: Service Date/Time: Sunday, May 14, 2017 11:41 - CONCLUSION: Normal examination. Matthew Marmolejo MD Chest X-Ray 05/13/17 1302 Signed Impressions: Service Date/Time: Saturday, May 13, 2017 13:07 - CONCLUSION: No acute disease. King Mathew Jr., MD Objective Remarks General: Pleasant male in no distress HEENT: Pupils equal, no scleral icterus, mouth negative Neck: No JVD Heart: RRR Lungs: Clear Abdomen: soft, obese, no significant tenderness Extremities: No edema Neuro: Alert, no focal findings A/P Assessment and Plan Assessment: -- Intermittent vague chest discomfort that was determined to be noncardiac and likely secondary to COPD -- COPD with hypoxic events when ambulating as the likely cause of his presenting symptoms -- Chronic respiratory failure who uses oxygen at night but has been hesitant to use it in the day. 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 I talked with Dr Sampson and he is okay with his discharge. He is instructed to use his oxygen during the day while ambulating and continue his inhalers. He will followup with his pyrotechnist (Dr Hussein). He will followup with his PCP (Dr Norwood) in one week. I will give him some Pantoprazole 40mg to use daily since it seemed to helped with some GI symptoms he was having. A new script for Amlodipine and the increased dose of Lisinopril that was ordered while in the hospital were given for his blood pressure control He was told to stay on a baby aspirin. He will continue his statin drug also and other medication from home. Nathaniel Castro MD May 15, 2017 11:49
== END 2017-05-15 12:35 | disposition home or self-care (01) ==
LOC: PHED 12:37 → PHEDA 15:01 → PH3A 16:01
PROVIDERS: ADMIT Family Medicine; ATTEND Family Medicine
DX: R07.89 Other chest pain (principal); J44.9 Chronic obstructive pulmonary disease, unspecified; J96.11 Chronic respiratory failure with hypoxia; E87.2 Acidosis; R79.1 Abnormal coagulation profile; I12.9 Hypertensive chronic kidney disease with stage 1 through stage 4 chronic kidney disease, or unspecified chronic kidney disease; N18.3 Chronic kidney disease, stage 3 (moderate); E78.5 Hyperlipidemia, unspecified; I20.9 Angina pectoris, unspecified; E78.00 Pure hypercholesterolemia, unspecified; I65.29 Occlusion and stenosis of unspecified carotid artery; I70.0 Atherosclerosis of aorta; I71.4 Abdominal aortic aneurysm, without rupture; K57.90 Diverticulosis of intestine, part unspecified, without perforation or abscess without bleeding; K76.0 Fatty (change of) liver, not elsewhere classified; H91.90 Unspecified hearing loss, unspecified ear; M19.90 Unspecified osteoarthritis, unspecified site; N40.0 Benign prostatic hyperplasia without lower urinary tract symptoms; E66.9 Obesity, unspecified; Z99.81 Dependence on supplemental oxygen; Z87.891 Personal history of nicotine dependence; Z79.899 Other long term (current) drug therapy; Z86.010 Personal history of colon polyps; Z85.46 Personal history of malignant neoplasm of prostate; Z92.3 Personal history of irradiation
CPT/HCPCS: 71010; 71275; 78452; 80048; 82550; 82805; 83735; 83880; 84484; 85025; 85379; 85610; 85730; 93005; 93017; 94620; 94664; 96374; 99285; A9502; G0378; J2785; J2930; Q9967